=== PATIENT | female | born 1970 | race Two or more races ===

== ENCOUNTER 2017-03-18 00:06 | Emergency (ER) | payer OTHER, BC ==
[2017-03-18] MEDS ORDERED: OXYCODONE-ACETAMINOPHEN 5-325 MG TABLET PO ONE (02:34)
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
[2017-03-18] MEDS ORDERED: HYDROCODONE/ACETAMINOPHEN 5-325 MG 6 TAB/DSPK PO PRN (03:16)
[2017-03-18 03:31] VITALS: BP 154/92
== END 2017-03-18 03:31 | disposition home or self-care (01) ==
LOC: ER 00:06
DX: S16.1XXA Strain of muscle, fascia and tendon at neck level, initial encounter (principal); M54.9 Dorsalgia, unspecified; M79.602 Pain in left arm; V89.2XXA Person injured in unspecified motor-vehicle accident, traffic, initial encounter
CPT/HCPCS: 72125; 99284